=== PATIENT | female | born 1985 | race African-American/Black ===

== ENCOUNTER 2019-01-07 14:43 | Emergency (ER) | payer MEDICAID ==
[~2019-01-07] VITALS: Ht 175.3 cm; Wt 66.0 kg
[2019-01-07 15:26] VITALS: BP 122/76
== END 2019-01-07 16:49 | disposition home or self-care (01) ==
LOC: ER 16:42
DX: F32.9 Major depressive disorder, single episode, unspecified (principal); F17.210 Nicotine dependence, cigarettes, uncomplicated; F12.10 Cannabis abuse, uncomplicated
CPT/HCPCS: 99284